=== PATIENT | male | born 1975 | race Caucasian/White ===

== ENCOUNTER 2019-09-29 08:07 | Emergency (ER) | payer OTHER ==
[2019-09-29] MEDS ORDERED: Azithromycin 250 MG Tab PO ONE (08:36)
[2019-09-29] MEDS ORDERED: cefTRIAXone 2 GM in Premix Bag 1 BAG IV ONE (08:36)
[2019-09-29] MEDS ORDERED: methylPREDNISolone Sodium Succinate 125 MG/2 ML SDV IVPUSH ONE (08:36)
--- NOTE | 2019-09-29 08:36 | EDM.PDOC ---
ED [facility] GENERAL MEDICAL PROBLEM - General Chief Complaint: Respiratory Problem Stated Complaint: SHORTNESS OF BREATHE; Time Seen by Provider: 09/29/19 08:09 - History of Present Illness INITIAL COMMENTS - FREE TEXT/NARRATIVE: HISTORY AND PHYSICAL: History of present illness: 44-year-old male with a past medical history of BMI greater than 45, presents to the emergency department complaining of shortness of breath. Patient reports that he has had almost 3 months of shortness of breath. In May he was cutting wood when he began having coughing sensation and wheezing. He went to his doctor and received steroids pack, inhaler, and nasal spray. He did have a slight improvement but no significant improvement. He continues to have a cough, feels like he is very tight in the chest, and produces clear sputum. This is abnormal for him. He states that he is unable to get a good night sleep and wakes up often changing from the bed to recliner and back again. He has never been tested for sleep apnea. He denies any chest pain or hemoptysis. No unilateral leg swelling or tenderness. He does not smoke cigarettes but does occasionally use a cigar but has not done so since May. Worse with exertion. No other associated signs or symptoms. No other modifying, aggravating or alleviating factors. Review of systems: A 10-point review of systems, other than pertinent positives and negatives as stated per HPI, is otherwise negative. Past medical history: As per history of present illness and as reviewed below otherwise noncontributory. Surgical history: As per history of present illness and as reviewed below otherwise noncontributory. Social history: No reported history of drug or alcohol abuse. Family history: As per history of present illness and as reviewed below otherwise noncontributory. Physical exam: VITAL SIGNS: Reviewed. GENERAL: Appears to be in moderate distress. Prolonged expiratory phase. Audible wheezing. HEAD: No signs of head trauma. EYES: Pupils are equal. Extraocular motions intact. EARS: Hearing grossly intact. MOUTH: Oropharynx is normal. NECK: Adenopathy, body habitus limits JVD evaluation. CHEST: Tachypnea, mild accessory muscle use, prolonged expiratory phase, audible wheezing, inspiratory and expiratory wheezing, no significant rhonchi. Some crackles in the bases. CARDIAC: Tachycardia my exam. I do not appreciate a murmur. Distant heart tones. VASCULAR: Peripheral pulses normal and equal in all extremities. ABDOMEN: Soft, without detectable tenderness. No sign of distention. No rebound or guarding, and no masses palpated. MUSCULOSKELETAL: Good range of motion of all major joints. Extremities without clubbing, cyanosis or edema. NEUROLOGIC EXAM: Alert and oriented x 3. No focal sensory or motor deficits. Speech normal. Follows commands. PSYCHIATRIC: Anxious. Intermittently sad. Relates a story of his grandmother just passing. He was a caregiver for her. This brings tears to him. He is quite nervous about being in the hospital given his recent experience. SKIN: No rash or lesions. Initial Differential Diagnosis & Plan: Cough: Differential diagnosis includes pneumonia, bronchitis upper respiratory infection, influenza/influenza-like illness, asthma or chronic obstructive pulmonary disease, congestive heart failure Given the patient's presentation I am concerned about chronic bronchitis, mycoplasma pneumonia, and congestive heart failure. The patient is at risk for sleep apnea as an undiagnosed condition. Given these findings I will obtain a CBC, complete metabolic panel, venous blood gas, BNP, troponin, 2 view chest x- ray and give a DuoNeb along with steroids. I will also give empiric treatment for atypical and typical pneumonia given his presentation. Definitive disposition and diagnosis as appropriate pending reevaluation and review of above. breathing Pain Score (Numeric/FACES): 2 - Related Data Allergies Allergy/AdvReac Type Severity Reaction Status Date / Time shellfish derived Allergy Swelling Verified 09/29/19 08:19 Home Meds: Home Meds Albuterol Sulfate [Proair Digihaler] 2 puff INH Q4H 09/29/19 [History] Albuterol [Proventil Neb Soln] 2.5 mg .XX QID #180 neb 09/29/19 [Rx] Albuterol/Ipratropium [DuoNeb 3.0-0.5 MG/3 ML] 3 ml .XX BID #60 neb 09/29/19 [Rx ] Azithromycin [Zithromax] 250 mg PO DAILY 5 Days #5 tab 09/29/19 [Rx] Mometasone Furoate [Nasonex] 2 sprays ALEK DAILY PRN 09/29/19 [History] predniSONE 1 tab PO DAILY 09/29/19 [History] predniSONE [Prednisone] 50 mg PO DAILY 5 Days #5 tablet 09/29/19 [Rx] Past Medical History - Past Health History Medical/Surgical History: Denies Medical/Surgical History Other Cardiovascular History: Angiogram Other Respiratory History: Recent Upper respiratory infection Other Musculoskeletal History: Abdominal Hernia - Past Surgical History Other HEENT Surgeries/Procedures: Nasal Surgery Other Cardiovascular Surgeries/Procedures: Angiogram GI Surgical History: Reports: Hernia, Abdominal Social & Family History - Tobacco Use Smoking Status *Q: Light Tobacco Smoker Years of Tobacco use: 20 Packs/Tins Daily: 0 - Recreational Drug Use Recreational Drug Use: No ED ROS GENERAL - Review of Systems Review Of Systems: See Below (noted) ED EXAM, GENERAL - Physical Exam Exam: See Below (noted) EKG INTERPRETATION EKG Interpretation Comments: 12 lead EKG interpretation Obtained: September 29, 2019 at 8:13 AM Rhythm: Sinus Rate: 96 [place]: Normal Intervals: Normal ST/T Segments: No acute ischemic changes Interpretation: Sinus Rhythm Course - Vital Signs Last Recorded V/S: Last Vital Signs Temp 98 F 09/29/19 08:16 Pulse 95 09/29/19 10:45 Resp 18 09/29/19 09:13 BP 150/75 H 09/29/19 10:45 Pulse Ox 96 09/29/19 10:45 - Orders/Labs/Meds Orders: Active Orders 24 hr Category Date Time Status EKG 12 Lead [EKG Documentation Completion] [RC] STAT Care 09/29/19 08:37 Active RT Aerosol Therapy [RC] ASDIRECTED Care 09/29/19 08:40 Active Chest 2V [CR] Stat Exams 09/29/19 09:21 Taken CULTURE BLOOD [BC] Stat Lab 09/29/19 08:55 Received CULTURE BLOOD [BC] Stat Lab 09/29/19 08:55 Received Blood Culture x2 Reflex Set [OM.PC] Stat Oth 09/29/19 08:41 Ordered Labs: Laboratory Tests 09/29/19 09/29/19 09/29/19 Range/Units 08:23 08:23 08:23 WBC 14.92 H (4.0-11.0) K/uL RBC 5.24 (4.50-5.90) M/uL Hgb 16.5 (13.0-17.0) g/dL Hct 48.8 (38.0-50.0) % MCV 93.1 (80.0-98.0) fL MCH 31.5 (27.0-32.0) pg MCHC 33.8 (31.0-37.0) g/dL RDW Std Deviation 43.3 (28.0-62.0) fl RDW Coeff of Ariana 13 (11.0-15.0) % Plt Count 350 (150-400) K/uL MPV 9.80 (7.40-12.00) fL Neut % (Auto) 71.1 (48.0-80.0) % Lymph % (Auto) 14.1 L (16.0-40.0) % [place] % (Auto) 10.3 (0.0-15.0) % Eos % (Auto) 4.3 (0.0-7.0) % Baso % (Auto) 0.2 (0.0-1.5) % Neut # (Auto) 10.6 H (1.4-5.7) K/uL Lymph # (Auto) 2.1 (0.6-2.4) K/uL [place] # (Auto) 1.5 H (0.0-0.8) K/uL Eos # (Auto) 0.6 (0.0-0.7) K/uL Baso # (Auto) 0.0 (0.0-0.1) K/uL Nucleated RBC % 0.0 /100WBC Nucleated RBCs # 0 K/uL D-Dimer, Quantitative 0.64 H (0.0-0.50) mg/L FEU VBG pH (7.31-7.41) VBG pCO2 (35-45) mmHG VBG pO2 (30-40) mmHG VBG HCO3 (22-30) mEq/L VBG Total CO2 (41-51) mmol/L VBG Base Excess (-3.0-3.0) Sodium 140 (136-148) mmol/L Potassium 3.8 (3.5-5.1) mmol/L Chloride 104 (98-107) mmol/L Carbon Dioxide 29.4 (21.0-32.0) mmol/L BUN 14 (7.0-18.0) mg/dL Creatinine 1.0 (0.8-1.3) mg/dL Est Cr Clr Drug Dosing 115.73 mL/min Estimated GFR (MDRD) > 60.0 ml/min Glucose 133 H (74-106) mg/dL Calcium 9.3 (8.5-10.1) mg/dL Total Bilirubin 0.7 (0.2-1.0) mg/dL AST 32 (15-37) IU/L ALT 72 H (14-63) IU/L Alkaline Phosphatase 92 (46-116) U/L Troponin I < 0.050 (0.000-0.056) ng/mL B-Natriuretic Peptide (<100) PG/ML Total Protein 7.9 (6.4-8.2) g/dL Albumin 4.1 (3.4-5.0) g/dL Globulin 3.8 (2.6-4.0) g/dL Albumin/Globulin Ratio 1.1 (0.9-1.6) 09/29/19 09/29/19 Range/Units 08:23 08:23 WBC (4.0-11.0) K/uL RBC (4.50-5.90) M/uL Hgb (13.0-17.0) g/dL Hct (38.0-50.0) % MCV (80.0-98.0) fL MCH (27.0-32.0) pg MCHC (31.0-37.0) g/dL RDW Std Deviation (28.0-62.0) fl RDW Coeff of Ariana (11.0-15.0) % Plt Count (150-400) K/uL MPV (7.40-12.00) fL Neut % (Auto) (48.0-80.0) % Lymph % (Auto) (16.0-40.0) % [place] % (Auto) (0.0-15.0) % Eos % (Auto) (0.0-7.0) % Baso % (Auto) (0.0-1.5) % Neut # (Auto) (1.4-5.7) K/uL Lymph # (Auto) (0.6-2.4) K/uL [place] # (Auto) (0.0-0.8) K/uL Eos # (Auto) (0.0-0.7) K/uL Baso # (Auto) (0.0-0.1) K/uL Nucleated RBC % /100WBC Nucleated RBCs # K/uL D-Dimer, Quantitative (0.0-0.50) mg/L FEU VBG pH 7.35 (7.31-7.41) VBG pCO2 54 H (35-45) mmHG VBG pO2 30 (30-40) mmHG VBG HCO3 30 (22-30) mEq/L VBG Total CO2 26 L (41-51) mmol/L VBG Base Excess 2.5 (-3.0-3.0) Sodium (136-148) mmol/L Potassium (3.5-5.1) mmol/L Chloride (98-107) mmol/L Carbon Dioxide (21.0-32.0) mmol/L BUN (7.0-18.0) mg/dL Creatinine (0.8-1.3) mg/dL Est Cr Clr Drug Dosing mL/min Estimated GFR (MDRD) ml/min Glucose (74-106) mg/dL Calcium (8.5-10.1) mg/dL Total Bilirubin (0.2-1.0) mg/dL AST (15-37) IU/L ALT (14-63) IU/L Alkaline Phosphatase (46-116) U/L Troponin I (0.000-0.056) ng/mL B-Natriuretic Peptide 3 (<100) PG/ML Total Protein (6.4-8.2) g/dL Albumin (3.4-5.0) g/dL Globulin (2.6-4.0) g/dL Albumin/Globulin Ratio (0.9-1.6) Meds: Medications Discontinued Medications Generic Name Dose Route Start Last Admin Trade Name Freq PRN Reason Stop Dose Admin Albuterol/Ipratropium Confirm 09/29/19 08:34 09/29/19 08:50 Duoneb 3.0-0.5 Mg/3 Ml Administered 09/29/19 08:35 Not Given Dose 3 ml .ROUTE .STK-MED ONE Albuterol/Ipratropium 3 ml 09/29/19 08:40 09/29/19 08:51 Duoneb 3.0-0.5 Mg/3 Ml NEB 09/29/19 08:41 3 ml ONETIME ONE Administration Azithromycin 500 mg 09/29/19 08:36 09/29/19 08:53 Zithromax PO 09/29/19 08:37 500 mg ONETIME ONE Administration Ceftriaxone Sodium/Dextrose 2 50 mls @ 100 mls/hr 09/29/19 08:36 09/29/19 08: 54 gm/ Premix IV 09/29/19 09:05 100 mls/hr ONETIME ONE Administration Iopamidol 75 ml 09/29/19 09:45 09/29/19 10:27 Isovue Multipack-370 (76%) IVPUSH 09/29/19 09:46 125 ml ONETIME STA Administration Methylprednisolone Sodium Succinate 125 mg 09/29/19 08:36 09/29/19 08:53 Solu-Medrol IVPUSH 09/29/19 08:37 125 mg ONETIME ONE Administration - Re-Assessments/Exams Free Text/Narrative Re-Assessment/Exam: 09/29/19 11:16 Feeling better after treatment in the emergency department. No evidence of PE on his study. Suboptimal but I feel that this is reasonable. I will treat the patient for his bronchospasm. It appears that he has a newly diagnosed COPD exacerbation/chronic bronchitis exacerbation. I will treat him at home with atypical antibiotic coverage and give a nebulizer machine, DuoNeb, and prednisone. Diagnostic impression: 1. Chronic bronchitis with acute exacerbation 2. Acute bronchospasm 3. History of BMI greater than 48 Departure - Departure Time of Disposition: 11:22 Disposition: Home, Self-Care 01 Clinical Impression: Acute bronchospasm, Chronic bronchitis with acute exacerbation, Body mass index (BMI) of 45.0 to 49.9 in adult - Discharge Information *PRESCRIPTION DRUG MONITORING PROGRAM REVIEWED*: Not Applicable *COPY OF PRESCRIPTION DRUG MONITORING REPORT IN PATIENT MARGARETH: Not Applicable Instructions: Bronchospasm, Adult, [id number], Chronic Bronchitis, Adult, Bronchospasm, Adult Referrals: PCP,None [Primary Care Provider] - [facility] [Outside] Forms: ED Department Discharge Additional Instructions: The following information is given to patients seen in the emergency department who are being discharged to home. This information is to outline your options for follow-up care. We provide all patients seen in our emergency department with a follow-up referral. The need for follow-up, as well as the timing and circumstances, are variable depending upon the specifics of your emergency department visit. If you don't have a primary care physician on staff, we will provide you with a referral. We always advise you to contact your personal physician following an emergency department visit to inform them of the circumstance of the visit and for follow-up with them and/or the need for any referrals to a consulting specialist. The emergency department will also refer you to a specialist when appropriate. This referral assures that you have the opportunity for follow-up care with a specialist. All of these measure are taken in an effort to provide you with optimal care, which includes your follow-up. Under all circumstances we always encourage you to contact your private physician who remains a resource for coordinating your care. When calling for follow-up care, please make the office aware that this follow-up is from your recent emergency room visit. If for any reason you are refused follow-up, please contact the [facility] Emergency Department at and asked to speak to the emergency department charge nurse. Thank you for coming to [facility] emergency department for your care today. It was my pleasure to take care of you. It appears that you have chronic bronchitis. You have had symptoms for more than 6 weeks and you are at risk for this condition. I strongly encourage you to see your doctor and get pulmonary function testing, sleep apnea testing, and discuss weight management strategies to improve your overall health and wellbeing. We will treat you with a nebulizer machine, albuterol, Atrovent, and steroids. We will give you initial antibiotics as chronic bronchitis exacerbations are often caused by certain types of bacteria called atypical pathogens. Please return to the emergency department for worsening. Your CAT scan today did not show evidence of pneumonia, pulmonary embolism, or other abnormalities. Please return for any worsening. Sepsis Event Note - Evaluation Sepsis Screening Result: Possible Sepsis Risk - Focused Exam Vital Signs: Vital Signs Temp Pulse Resp BP Pulse Ox 09/29/19 10:45 95 150/75 H 96 09/29/19 09:13 88 18 146/80 H 90 L 09/29/19 08:56 95 134/86 95 09/29/19 08:16 98 F 104 H 21 H 166/94 H 95 Date Exam was Performed: 09/29/19 Time Exam was Performed: 11:16 - My Orders Last 24 Hours: My Active Orders 09/29/19 08:37 EKG 12 Lead [EKG Documentation Completion] [RC] STAT 09/29/19 08:40 RT Aerosol Therapy [RC] ASDIRECTED 09/29/19 08:41 Blood Culture x2 Reflex Set [OM.PC] Stat 09/29/19 08:55 CULTURE BLOOD [BC] Stat CULTURE BLOOD [BC] Stat 09/29/19 09:21 Chest 2V [CR] Stat - Assessment/Plan Last 24 Hours: My Active Orders 09/29/19 08:37 EKG 12 Lead [EKG Documentation Completion] [RC] STAT 09/29/19 08:40 RT Aerosol Therapy [RC] ASDIRECTED 09/29/19 08:41 Blood Culture x2 Reflex Set [OM.PC] Stat 09/29/19 08:55 CULTURE BLOOD [BC] Stat CULTURE BLOOD [BC] Stat 09/29/19 09:21 Chest 2V [CR] Stat
[2019-09-29] MEDS: Albuterol/Ipratropium 3.0-0.5 MG/3 ML Neb Soln ONE ×2 (08:37→08:50)
[2019-09-29] MEDS: Albuterol/Ipratropium 3.0-0.5 MG/3 ML Neb Soln NEB ONE ×2 (08:41→08:51)
[2019-09-29 08:57] LABS: BLOOD UREA NITROGEN,BUN 14 mg/dL (7.0-18.0); CARBON DIOXIDE,CO2 29.4 mmol/L (21.0-32.0); CHLORIDE,CL 104 mmol/L (98-107); GLUCOSE RANDOM 133 mg/dL (74-106); POTASSIUM,K 3.8 mmol/L (3.5-5.1); SODIUM,NA 140 mmol/L (136-148)
[2019-09-29] MEDS ORDERED: Iopamidol 755 MG/ML 500 ML Multipack Bottle IVPUSH STA (09:45)
[2019-09-29 11:04] VITALS: BP 150/75; PULSE 95
--- NOTE | 2019-09-29 11:08 | CT ---
CT chest Technique: Multiple axial sections through the chest were obtained. Intravenous contrast was utilized. Study was repeated due to poor contrast administration. Findings: Pulmonary arteries are less than optimally opacified secondary to body habitus. No filling defects are seen within the main or segmental branches but smaller subsegmental pulmonary emboli could be missed. Aorta shows no aneurysm. Mediastinum shows no adenopathy. Hilar regions also show no adenopathy. No pericardial fluid is seen. Visualized upper abdominal structures shows no discrete abnormality. Lungs are clear with no acute parenchymal change. No pleural effusions or pneumothorax is seen. Bone window settings were reviewed. No acute osseous finding is appreciated. Impression: 1. Suboptimal opacification of pulmonary arteries despite repeating the exam. No filling defects within the main or segmental branches are seen to indicate pulmonary embolism. Smaller pulmonary emboli within the subsegmental branches could be missed. 2. Nothing acute is otherwise seen on CT study of the chest. Diagnostic code #3 This report was dictated in MDT
--- NOTE | 2019-09-29 12:02 | CR ---
Chest: 2 views of the chest were obtained. Comparison: Prior chest x-ray of 05/28/09. Heart size and mediastinum are normal. Lungs are clear with no acute parenchymal change. Bony structures appear within normal limits. Impression: 1. Nothing acute is seen on 2 view chest x-ray. Diagnostic code #1 This report was dictated in MDT
== END 2019-09-29 11:55 | disposition home or self-care (01) ==
LOC: MW.ED 08:07
DX: J42 Unspecified chronic bronchitis (principal); J98.01 Acute bronchospasm; F17.290 Nicotine dependence, other tobacco product, uncomplicated; Z91.013 Allergy to seafood; Z79.899 Other long term (current) drug therapy; Z68.42 Body mass index [BMI] 45.0-49.9, adult
CPT/HCPCS: 36415; 71046; 71275; 80053; 82803; 83880; 84484; 85025; 85379; 87040; 93005; 94640; 96365; 96375; 99285; A9270; J0696; J2930; Q9967; 99283; J7620-GY

== ENCOUNTER 2021-05-06 12:20 | Emergency (ER) | payer BC, OTHER ==
[2021-05-06] MEDS ORDERED: Bupivacaine 0.5% 10 ML SDV INJECT ONE (14:20)
--- NOTE | 2021-05-06 14:53 | CR ---
Indication: Finger laceration. Technique: Three views of the right hand 2nd digit. Comparison: None Findings/Impression: No acute fracture or dislocation. Soft tissue laceration is present at the radial aspect of the 2nd digit. No evidence of retained radiopaque foreign body. Dictated by Phyllis Harmon MD @ 05/06/2021 2:52:07 PM (Electronically Signed)
--- NOTE | 2021-05-06 15:37 | EDM.PDOC ---
ED HPI GENERAL MEDICAL PROBLEM - General Chief Complaint: Laceration Stated Complaint: CUT FINGER Time Seen by Provider: 05/06/21 12:24 Source of Information: Reports: Patient History Limitations: Reports: No Limitations - History of Present Illness INITIAL COMMENTS - FREE TEXT/NARRATIVE: HISTORY AND PHYSICAL: History of present illness: Patient is a 45-year-old male who presents the emergency room today with concern of finger laceration that occurred just prior travel to the emergency room. Patient states that he was doing the dishes when he put too much pressure on a glass that broke and cut his finger. Patient states that he is up-to-date on his tetanus vaccine. Denies any other symptoms or concerns. Patient denies fever, chills, chest pain, shortness of breath, or cough. Denies headache, neck stiff ness, change in vision, syncope, or near syncope. Denies nausea, vomiting, abdominal pain, diarrhea, constipation, or dysuria. Has not noted any blood in urine or stool. Patient has been eating and drinking appropriately. Review of systems: As per history of present illness and below otherwise all systems reviewed and negative. Past medical history: As per history of present illness and as reviewed below otherwise noncontributory. Surgical history: As per history of present illness and as reviewed below otherwise noncontributory. Social history: See social history for further information Family history: As per history of present illness and as reviewed below otherwise noncontributory. Physical exam: General: Patient is alert, oriented, and in no acute distress. Patient sitting comfortably on exam table. HEENT: Atraumatic, normocephalic, pupils equal and reactive bilaterally, negative for conjunctival pallor or scleral icterus, mucous membranes moist, throat clear, neck supple, nontender, trachea midline. No drooling or trismus noted. No meningeal signs. No hot potato voice noted. Lungs: Clear to auscultation, breath sounds equal bilaterally, chest nontender. Heart: S1S2, regular rate and rhythm without overt murmur Abdomen: Soft, nondistended, nontender. Negative for masses or hepatosplenomegaly. Negative for costovertebral tenderness. Pelvis: Stable nontender. Genitourinary: Deferred. Rectal: Deferred. Skin: Intact, warm, dry. No lesions or rashes noted. Extremities: There is a 4 cm triangular-shaped subcutaneous laceration of the right hand mid second digit with hemostasis. Patient does have full range of motion of the affected digit without deficit. Radial pulses grossly intact in the right upper extremity with capillary refill less than 2 seconds. Intact sensation to light and deep touch of the complete right upper extremity. Otherwise, atraumatic, negative for cords or calf pain. Neurovascular unremarkable. Neuro: Awake, alert, oriented. Cranial nerves II through XII unremarkable. Cerebellum unremarkable. Motor and sensory unremarkable throughout. Exam nonfocal. Medical Decision Making: Strict return precautions thoroughly discussed with patient. Discussed the importance for follow-up with the primary care provider. Voices understanding and is agreeable to plan of care. Denies any further questions or concerns at this time. Diagnostics: hand X-ray Therapeutics: Digital block, sutures, sterile dressing placed by nursing staff, lidocaine, bupivacaine Prescription: None Impression: Finger laceration, right, 2nd digit Plan: 1. Keep the area clean and dry. Continue to monitor for signs of infection as discussed. Sutures to be removed in 7-10 days. 2. Tylenol and/or ibuprofen as directed and as needed for pain management and discomfort. 3. Please follow-up with your primary care provider as discussed. Return to the ED as needed and as discussed. Definitive disposition and diagnosis as appropriate pending reevaluation and review of above. right pointer finger Pain Score (Numeric/FACES): 4 - Related Data Allergies Allergy/AdvReac Type Severity Reaction Status Date / Time shellfish derived Allergy Swelling Verified 05/06/21 12:40 Home Meds: Home Meds . [No Known Home Meds] 05/06/21 [History] Past Medical History - Past Health History Medical/Surgical History: Denies Medical/Surgical History Other Cardiovascular History: Angiogram Respiratory History: Reports: Asthma Other Respiratory History: Recent Upper respiratory infection Other Musculoskeletal History: Abdominal Hernia - Infectious Disease History Infectious Disease History: Reports: Chicken Pox, Measles - Past Surgical History Other HEENT Surgeries/Procedures: Nasal Surgery Other Cardiovascular Surgeries/Procedures: Angiogram GI Surgical History: Reports: Hernia, Abdominal Social & Family History - Family History Family Medical History: No Pertinent Family History - Caffeine Use Caffeine Use: Reports: Coffee - Recreational Drug Use Recreational Drug Use: No ED ROS GENERAL - Review of Systems Review Of Systems: Comprehensive ROS is negative, except as noted in HPI. ED EXAM, SKIN/RASH Exam: See Below (see dictation) ED SKIN PROCEDURES - Laceration/Wound Repair Right Digit - 2nd (Index) Appearance: Subcutaneous, Irregular, Clean, Heavily Contaminated Distal NVT: Neuro & Vascular Intact, No Tendon Injury Anesthetic Type: Local Local Anesthesia - Lidocaine (Xylocaine): 1% Plain Local Anesthetic Volume: Other (10) Skin Prep: Chlorhexidine (Hibiciens), Saline Saline Irrigation (cc's): 500 Exploration/Debridement/Repair: Wound Explored, In a Bloodless Field, Explored to Base, No Foreign Material Found Closed with: Sutures Lac/Wound length In cm: 4 Suture Size: 4-0 # of Sutures: 12 Suture Type: Silk, Interrupted Drain Placement: No Sterile Dressing Applied: Nurse Tetanus Status Addressed: Yes (up to date) Complications: No Progress/Comments: Suturing performed by [employer] student SHILPI Ny observed and supervised directly by me. Course - Vital Signs Last Recorded V/S: Last Vital Signs Temp 98.1 F 05/06/21 12:41 Pulse 87 05/06/21 14:13 Resp 16 05/06/21 12:41 BP 132/85 05/06/21 14:13 Pulse Ox 98 05/06/21 14:13 - Orders/Labs/Meds Meds: Medications Discontinued Medications Generic Name Dose Route Start Last Admin Trade Name Alexa PRN Reason Stop Dose Admin Bupivacaine HCl 10 ml 05/06/21 14:20 05/06/21 14:34 Bupivacaine 0.5% 10 Ml Sdv INJECT 05/06/21 14:21 10 ml ONETIME ONE Administration Lidocaine HCl 5 ml 05/06/21 13:45 05/06/21 13:50 Lidocaine 1% 5 Ml Sdv INJECT 05/06/21 13:46 5 ml ONETIME ONE Administration Departure - Departure Time of Disposition: 15:37 Disposition: Home, Self-Care 01 Clinical Impression: Finger laceration - Discharge Information Instructions: Laceration Care, Adult, [id number] Referrals: Brittany Cordova DO [Primary Care Provider] - Forms: ED Department Discharge Additional Instructions: The following information is given to patients seen in the emergency department who are being discharged to home. This information is to outline your options for follow-up care. We provide all patients seen in our emergency department with a follow-up referral. The need for follow-up, as well as the timing and circumstances, are variable depending upon the specifics of your emergency department visit. If you don't have a primary care physician on staff, we will provide you with a referral. We always advise you to contact your personal physician following an emergency department visit to inform them of the circumstance of the visit and for follow-up with them and/or the need for any referrals to a consulting specialist. The emergency department will also refer you to a specialist when appropriate. This referral assures that you have the opportunity for follow-up care with a specialist. All of these measure are taken in an effort to provide you with optimal care, which includes your follow-up. Under all circumstances we always encourage you to contact your private physician who remains a resource for coordinating your care. When calling for follow-up care, please make the office aware that this follow-up is from your recent emergency room visit. If for any reason you are refused follow-up, please contact the [facility] Emergency Department at and asked to speak to the emergency department charge nurse. [facility] [address] [place] [address] [place] [address] 1. Keep the area clean and dry. Continue to monitor for signs of infection as discussed. Sutures to be removed in 7-10 days. 2. Tylenol and/or ibuprofen as directed and as needed for pain management and discomfort. 3. Please follow-up with your primary care provider as discussed. Return to the ED as needed and as discussed. Sepsis Event Note (ED) - Evaluation Sepsis Screening Result: No Definite Risk - Focused Exam Vital Signs: Vital Signs Temp Pulse Resp BP Pulse Ox 05/06/21 14:13 87 132/85 98 05/06/21 13:43 77 153/94 H 99 05/06/21 12:41 98.1 F 100 16 150/103 H 95
[2021-05-06 19:48] VITALS: BP 128/73; PULSE 68
== END 2021-05-06 15:40 | disposition home or self-care (01) ==
LOC: MW.ED 12:20
DX: S61.210A Laceration without foreign body of right index finger without damage to nail, initial encounter (principal); J45.909 Unspecified asthma, uncomplicated; Z91.013 Allergy to seafood; W25.XXXA Contact with sharp glass, initial encounter
CPT/HCPCS: 12002; 73140; 99283; J3490

== ENCOUNTER 2022-08-09 07:42 | Emergency (ER) | payer BC ==
[2022-08-09] MEDS ORDERED: Sodium Chloride 0.9% 1,000 ML IV ONE (08:00)
[2022-08-09] MEDS ORDERED: Sodium Chloride 0.9% 2.5 ML Syringe FLUSH PRN (08:00)
[2022-08-09] MEDS ORDERED: Sodium Chloride 0.9% 10 ML Syringe FLUSH PRN (08:00)
[2022-08-09] MEDS ORDERED: Ketorolac 30 MG/ML SDV IVPUSH ONE (08:03)
[2022-08-09 08:45] LABS: BLOOD UREA NITROGEN,BUN 20 mg/dL (7.0-18.0); CARBON DIOXIDE,CO2 27.8 mmol/L (21.0-32.0); CHLORIDE,CL 103 mmol/L (98-107); ESTIMATED GFR 106 mL/min (>60); GLUCOSE RANDOM 143 mg/dL (74-106); LIPASE 33 U/L (73-393); POTASSIUM,K 3.8 mmol/L (3.5-5.1); SODIUM,NA 140 mmol/L (136-148)
[2022-08-09] MEDS ORDERED: Iopamidol 755 Mg/ML 100 ML Bottle IVPUSH ONE (09:11)
[2022-08-09] MEDS ORDERED: fentaNYL 50 MCG/ML SDV IVPUSH ONE (09:38)
[2022-08-09] MEDS ORDERED: Acetaminophen/HYDROcodone 325-5 MG Tab PO ONE (09:48)
[2022-08-09 09:57] VITALS: BP 140/89
[2022-08-09 10:41] VITALS: PULSE 88
== END 2022-08-09 10:41 | disposition home or self-care (01) ==
LOC: MW.ED 07:42
DX: J90 Pleural effusion, not elsewhere classified (principal); J45.909 Unspecified asthma, uncomplicated; Z91.013 Allergy to seafood; Z79.899 Other long term (current) drug therapy
CPT/HCPCS: 36415; 71275; 80053; 81003; 83690; 83880; 84484; 85025; 85379; 93005; 96361; 96374; 99285; A9270; J1885; J3490; J7030; Q9967; 93010; 99283